=== PATIENT | female | born 1965 | race American Indian/Alaskan Native ===

== ENCOUNTER 2018-02-09 14:34 | Emergency (ER) | payer BC ==
--- NOTE | 2018-02-09 18:42 | Emergency Department Report ---
HPI - General Chief Complaint: Pain General Time Seen by Provider: 02/09/18 17:51 - HPI HPI: Patient is a 52-year-old female with no prior medical history who presents to ED complaining that she woke up on morning and fell the back of her right posterior close to her heel pain. Patient denies any injury trauma to the leg. Patient states that pain is worsen with standing. Patient states denies recent antibiotic use. She denies loss of sensation. ED Past Medical Hx - Past Medical History Hx Hypertension: Yes - Surgical History Past Surgical History?: Yes Additional Surgical History: kidney transplant 2008 - Social History Smoking Status: Never Smoker Substance Use Type: None - Medications Home Medications: Home Medications Medication Instructions Recorded Confirmed Last Taken Type Diclofenac (Nf) 50 mg PO BID #30 tablet. 02/09/18 Unknown Rx ED Review of Systems ROS: Stated complaint: LEG/ANKLE PAIN Other details as noted in HPI Constitutional: denies: chills, fever Eyes: denies: eye pain, eye discharge, vision change ENT: denies: ear pain, throat pain Respiratory: denies: cough, shortness of breath, wheezing Cardiovascular: denies: chest pain, palpitations Endocrine: no symptoms reported Gastrointestinal: denies: abdominal pain, nausea, diarrhea Genitourinary: denies: urgency, dysuria, discharge Musculoskeletal: denies: back pain, joint swelling, arthralgia Skin: denies: rash, lesions Neurological: denies: headache, weakness, paresthesias Psychiatric: denies: anxiety, depression Hematological/Lymphatic: denies: easy bleeding, easy bruising Physical Exam - Physical Exam Vital Signs: Vital Signs 02/09/18 15:29 Temperature 97.6 F Pulse Rate 78 Blood Pressure 119/77 Physical Exam: GENERAL: Alert and oriented x3, no apparent distress, Normal Gait, atraumatic. HEAD: Head is normocephalic and a-traumatic. EYES: Extra ocular muscles are intact. Pupils are equal, round, and reactive to light and accommodation. LUNGS: Symetrical with respiration, No wheezing, no rales or crackles, CTAB. HEART: S1, S2 present, regular rate and rhythm without murmur, no rubs, no gallops. Non tender to palpation EXTREMITIES/MUSCULOSKELETAL: No cyanosis, clubbing, rash, lesions or edema. Full ROM bilaterally. UE/LE Pulses 2+ bilaterally. LE and UE 5+ strength bilaterally, ankle joints are intact, no swelling, no ecchymoses no laceration. No calf tenderness, swelling. Mild Tenderness to palpation of the Achilles tendon, no sign of rupture, patient able to apply pressure to the heel. NEUROLOGIC: The patient is cooperative with no focal neurologic deficits. . Normal speech. Normal sensation in bilateral upper and lower extremities, No loss of sensation, SKIN: Warm and dry, No lesions, No ulceration or induration present. ED Course Vital Signs 02/09/18 15:29 Temperature 97.6 F Pulse Rate 78 Blood Pressure 119/77 ED Medical Decision Making - Medical Decision Making This 52-year-old female presents with possible Achilles tendinitis ED course: Patient received Motrin and right ear. Patient is able to ambulate appropriately with no issues. Patient received postop shoe prior to discharge. I discussed the patient follow-up with orthopedic doctor. I discussed the patient appropriately refrained from prolonged standing. I discussed the patient worsens symptoms to return to ED. Vital signs are normal patient is in no acute distress. Critical care attestation.: If time is entered above; I have spent that time in minutes in the direct care of this critically ill patient, excluding procedure time. ED Disposition Clinical Impression: Achilles tendinitis, right leg, Achilles tendon pain Disposition: - TO HOME OR SELFCARE Is pt being admited?: No Does the pt Need Aspirin: No Condition: Stable Instructions: Achilles Tendinitis (ED), Arthralgia (ED), Tendinitis (ED) Additional Instructions: Make sure to follow up with the primary care physician as discussed. Take all your medications as you've been prescribed. If you have any worsening symptoms or develop new symptoms please return to ED immediately. Prescriptions: Diclofenac (Nf) 50 mg PO BID #30 tablet. Referrals: PRIMARY CAREMD [Primary Care Provider] - 3-5 Days SHILOH IBARRA MD [Staff Physician] - 3-5 Days JAGJIT LAMA MD [Staff Physician] - 3-5 Days Forms: Work/School Release Form(ED) Time of Disposition: 19:21
[2018-02-09] MEDS ORDERED: MOTRIN PO ONE (18:43)
[2018-02-09 19:51] VITALS: BP 122/74
== END 2018-02-09 19:31 | disposition home or self-care (01) ==
LOC: ED 14:34
DX: M76.61 Achilles tendinitis, right leg (principal); I10 Essential (primary) hypertension; Z88.1 Allergy status to other antibiotic agents; Z94.0 Kidney transplant status
CPT/HCPCS: 99283